=== PATIENT | male | born 1980 | race Hispanic/Latino ===

== ENCOUNTER → 2020-05-18 | Outpatient (REF) | payer SELFPAY ==
[2020-05-18 18:41] LABS: COMPLEMENT C3 116 MG/DL (90-180); COMPLEMENT C4 22 MG/DL (10-40); TOTAL PROTEIN 6.7 GM/DL (6.4-8.2)
[2020-05-18 18:51] LABS: HEPATITIS B SURFACE ANTIBODY POSITIVE (POSITIVE)
[2020-05-18 19:02] LABS: HEPATITIS B SURFACE ANTIGEN NEGATIVE (NEGATIVE)
[2020-05-18 19:30] LABS: HEPATITIS C VIRUS ABY INDEX 0.1 INDEX (<0.8)
[2020-05-18 19:31] LABS: HEPATITIS B CORE ANTIBODY IGM NEGATIVE (NEGATIVE)
[2020-05-22 10:32] LABS: ALBUMIN 4.04 GM/DL (3.29-5.55); ALBUMIN % 60.3 % (55.8-66.1); ALPHA-1-GLOBULIN % 3.4 % (2.9-4.9); ALPHA-1-GLOBULINS 0.23 GM/DL (0.17-0.41); ALPHA-2-GLOBULINS % 8.9 % (7.1-11.8); BETA-1-GLOBULINS % 7.5 % (4.7-7.2); BETA-2-GLOBULINS 0.38 GM/DL (0.19-0.55); BETA-2-GLOBULINS % 5.7 % (3.2-6.5); GAMMA GLOBULIN % 14.2 % (11.1-18.8); GAMMA GLOBULINS 0.95 GM/DL (0.65-1.58)
[2020-05-23 16:08] LABS: ANCA-ATYPICAL <1:20 titer (Neg:<1:20); ANTI DS-DNA AB Negative (Negative); ANTINUCLEAR ANTIBODIES DIRECT Negative (Negative); CYTOPLASMIC NEUTROP AB ANCA-C <1:20 titer (Neg:<1:20); PERINUCLEAR AB ANCA-P <1:20 titer (Neg:<1:20)
== END ==
LOC: M LAB REF 16:46
PROVIDERS: ATTEND Internal Medicine Nephrology
DX: R80.1 Persistent proteinuria, unspecified (principal)

== ENCOUNTER → 2020-06-07 | Outpatient (REF) | payer SELFPAY | LOC: M LAB REF 16:59 | PROVIDERS: ATTEND Internal Medicine Nephrology | DX: R80.1 Persistent proteinuria, unspecified (principal) ==

== ENCOUNTER → 2020-09-12 | Outpatient (REF) | payer SELFPAY | LOC: M LAB REF 16:43 | PROVIDERS: ATTEND Internal Medicine Nephrology | DX: R80.1 Persistent proteinuria, unspecified (principal) ==

== ENCOUNTER → 2022-07-04 | Outpatient (CLI) | payer OTHER | LOC: M PLARAD 08:29 | PROVIDERS: ATTEND Physician Assistant | DX: M47.896 Other spondylosis, lumbar region (principal) ==